=== PATIENT | female | born 1965 | race Caucasian/White ===

== ENCOUNTER 2021-01-12 10:54 | Emergency (ER) | payer OTHER, MEDICAID ==
[~2021-01-12] VITALS: Ht 177.8 cm; Wt 63.5 kg
[2021-01-12 11:00] VITALS: BP 115/55
[2021-01-12] MEDS ORDERED: MULTIVITAMINS1 EAC6 PO (11:11)
[2021-01-12] MEDS ORDERED: DEPAKOTE ER250 MG PO (11:11)
[2021-01-12] MEDS ORDERED: PROZAC10 M1 PO (11:11)
[2021-01-12] MEDS ORDERED: NORCO5 PO ×2 (11:30→11:42)
[2021-01-12] MEDS ORDERED: ONDANSETRON HCL4 M2 PO ×2 (11:30→11:38)
== END 2021-01-12 11:59 | disposition home or self-care (01) ==
LOC: M.ERS 10:54
DX: M25.532 Pain in left wrist (principal); F12.90 Cannabis use, unspecified, uncomplicated; Z88.2 Allergy status to sulfonamides; Z79.899 Other long term (current) drug therapy

== ENCOUNTER 2021-08-07 15:50 | Emergency (ER) | payer OTHER, MEDICAID ==
[~2021-08-07] VITALS: Ht 177.8 cm; Wt 59.0 kg
[~2021-08-07 15:50] MED LIST: DEPAKOTE ER250 MG PO; MULTIVITAMINS1 EAC6 PO; NORCO5 PO; ONDANSETRON HCL4 M2 PO; PROZAC10 M1 PO
[2021-08-07 16:26] VITALS: BP 115/49
== END 2021-08-07 18:00 | disposition left against medical advice (07) ==
LOC: M.ERS 15:50
DX: R51.9 Headache, unspecified (principal); Z53.21 Procedure and treatment not carried out due to patient leaving prior to being seen by health care provider